=== PATIENT | female | born 1940 ===

== ENCOUNTER 2016-12-05 13:27 | Inpatient (IN) | payer MEDICARE, OTHER ==
[2016-12-05] MEDS ORDERED: Sodium Chloride 0.9% 500 ML IV STA (13:57)
--- NOTE | 2016-12-05 13:57 | ED PDOC ---
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 Pt. had dyspnea then too. Pt. states currently no pain. No numbness, tingles, weakness , headaches, neck pain, dizziness. Pt. with no dyspnea currently. Past Medical History Reviewed: Nursing Documentation, Vital Signs Vital Signs: Last Vital Signs Temp 97.8 F 12/05/16 13:41 Pulse 131 H 12/05/16 13:50 Resp 20 12/05/16 13:41 BP 144/93 H 12/05/16 13:41 Pulse Ox 95 12/05/16 14:03 - Medical History PMH: Diabetes, HTN, Hypercholesterolemia - Surgical History Surgical History: No Surg Hx - Family History Family History: States: Unknown Family Hx - Living Arrangements Living Arrangements: With Family - Social History Current smoker - smoking cessation education provided: No Alcohol: None Drugs: Denies - Allergies Allergies/Adverse Reactions: Allergies Allergy/AdvReac Type Severity Reaction Status Date / Time No Known Allergies Allergy Verified 12/05/16 13:41 Review of Systems ROS Statement: Except As Marked, All Systems Reviewed And Found Negative Cardiovascular: Positive for: Chest Pain Respiratory: Positive for: Shortness of Breath Physical Exam - Reviewed Nursing Documentation Reviewed: Yes Vital Signs Reviewed: Yes - Physical Exam Appears: Positive for: Non-toxic, No Acute Distress Head Exam: Positive for: ATRAUMATIC, NORMAL INSPECTION, NORMOCEPHALIC Skin: Positive for: Normal Color, Warm, DRY Eye Exam: Positive for: EOMI, Normal appearance, PERRL ENT: Positive for: Normal ENT Inspection Neck: Positive for: Normal, Painless ROM Cardiovascular/Chest: Positive for: Irregularly Irregular Respiratory: Positive for: Normal Breath Sounds. Negative for: Decreased Breath Sounds, Accessory Muscle Use Gastrointestinal/Abdominal: Positive for: Normal Exam, Bowel Sounds, Soft. Negative for: Tenderness Back: Positive for: Normal Inspection. Negative for: L CVA Tenderness, R CVA Tenderness Extremity: Positive for: Normal ROM. Negative for: Tenderness, Pedal Edema Neurologic/Psych: Positive for: Alert, Oriented. Negative for: Motor/Sensory Deficits - Laboratory Results Result Diagrams: 12/05/16 13:50 12/05/16 13:50 Interpretation Of Abn Labs: 32 bun - ECG ECG: Positive for: Interpreted By Me, Viewed By Me Interpretation Of Abn EKG: afib rate controlled; 105 while in room O2 Sat by Pulse Oximetry: 95 Pulse Ox Interpretation: Normal - Radiology X-Ray: Read By Radiologist X-Ray Interpretation: No Acute Disease - Progress ED Course And Treament: 1402: Stable. AAOx3. No afib hx. Will get eval and monitor. Rate controlled currently. Took ASA this morning. 1625: No bleeding. No recent injury. Will give lovenox. Spoke with Dr. Sewell. Will admit tele. Pain free. Disposition - Clinical Impression Clinical Impression: Chest pain, Dehydration, Atrial fibrillation - Patient ED Disposition Is Patient to be Admitted: No Counseled Patient/Family Regarding: Studies Performed, Diagnosis - Disposition Disposition Time: 16:28 Condition: FAIR - Pt Status Changed To: Hospital Disposition Of: Inpatient - Admit Certification Admit to Inpatient:: After my assessment, the patient will require hospitalization for at least two midnights. This is because of the severity of symptoms shown, intensity of services needed, and/or the medical risk in this patient being treated as an outpatient. - POA Present On Arrival: None Core Measure Indicators: Chest Pain
[2016-12-05 14:22] LABS: BASO # 0.1 K/uL (0.0-0.2); BASO % 0.7 % (0.0-2.0); EOS # 0.3 K/uL (0.0-0.7); EOS % 4.1 % (0.0-4.0); HEMATOCRIT 34.7 % (34.0-47.0); LYMPH # 2.5 K/uL (1.0-4.3); LYMPH % 34.1 % (20.0-40.0); MEAN CELL VOLUME 90.2 fl (81.0-99.0); MEAN CORPUSCULAR HEMOGLOBIN 30.3 pg (27.0-31.0); MEAN CORPUSCULAR HGB CONC 33.6 g/dL (33.0-37.0); MEAN PLATELET VOLUME 8.6 fl (7.2-11.7); MONO # 0.8 K/uL (0.0-0.8); MONO % 10.4 % (0.0-10.0); NEUT # 3.7 K/uL (1.8-7.0); NEUT % 50.7 % (50.0-75.0); NRBC % 0.2 % (0.0-0.0); RED CELL DISTRIBUTION WIDTH 14.2 % (11.5-14.5); WHITE BLOOD COUNT 7.2 K/uL (4.8-10.8)
[2016-12-05 14:26] LABS: ALB/GLOB RATIO 1.1 (1.0-2.1); ALKALINE PHOSPHATASE 77 U/L (38-126); ALT/SGPT 42 U/L (9-52); AST/SGOT 51 U/L (14-36); BILIRUBIN,TOTAL 0.8 mg/dl (0.2-1.3); BLOOD UREA NITROGEN 32 mg/dl (7-17); CALCIUM 8.8 mg/dL (8.4-10.2); CARBON DIOXIDE 28 mmol/L (22-30); CHLORIDE 100 mmol/L (98-107); GFR AFRICAN-AMERICAN > 60; GLUCOSE,RANDOM 112 mg/dL (65-105); PARTIAL THROMBOPLASTIN TIME 23.3 SECONDS (23.3-32.5); SODIUM 137 mmol/l (132-148); TOTAL PROTEIN 8.2 G/DL (6.3-8.2)
[2016-12-05 14:39] LABS: POTASSIUM 4.4 MMOL/L (3.6-5.0)
--- NOTE | 2016-12-05 15:03 | RAD ---
HISTORY: pain chest COMPARISON: No prior. FINDINGS: LUNGS: Limited examination. Oblique and apical lordotic. No infiltrate. PLEURA: No significant pleural effusion identified, no pneumothorax apparent. CARDIOVASCULAR: Normal. OSSEOUS STRUCTURES: No significant abnormalities. VISUALIZED UPPER ABDOMEN: Normal. OTHER FINDINGS: None. IMPRESSION: No active disease.
[2016-12-05] MEDS ORDERED: Enoxaparin 100 mg Syringe SC STA (16:27)
--- NOTE | 2016-12-05 17:12 | CP.PCM.HP ---
History of Present Illness - History of Present Illness History of Present Illness: 76 yo female with history of HTN, HLD and DM2 brought in by family because of left sided chest pain radiating to the back, left shoulder and left hand since 12 noon today accompanied with mild SOB. Pain was continuous and graded at about 9/10 subsiding to about 6/10 when seen in the ER. Denied nausea, vomiting or dizziness. Present on Admission - Present on Admission Any Indicators Present on Admission: No History of DVT/PE: No History of Uncontrolled Diabetes: No Urinary Catheter: No Decubitus Ulcer Present: No Review of Systems - Review of Systems All systems: reviewed and no additional remarkable complaints except (aside from those mentioned above, 12 point system review were negative by me) Past Patient History - Infectious Disease Hx of Infectious Diseases: None - Tetanus Immunizations Tetanus Immunization: Unknown - Past Medical History & Family History Past Medical History?: Yes - Past Social History Smoking Status: Never Smoked Chewing Tobacco Use: No Cigar Use: No Alcohol: None Drugs: Denies Home Situation {Lives}: With Family - CARDIAC Hx Atrial Fibrillation: No Hx Hypercholesterolemia: Yes Hx Hypertension: Yes - PULMONARY Hx Respiratory Disorders: No - NEUROLOGICAL Hx Neurological Disorder: No - HEENT Hx HEENT Problems: No - RENAL Hx Chronic Kidney Disease: No - ENDOCRINE/METABOLIC Hx Diabetes Mellitus Type 2: Yes - HEMATOLOGICAL/ONCOLOGICAL Hx Blood Disorders: No - INTEGUMENTARY Hx Dermatological Problems: No - MUSCULOSKELETAL/RHEUMATOLOGICAL Hx Musculoskeletal Disorders: No - GASTROINTESTINAL Hx Gastrointestinal Disorders: No - GENITOURINARY/GYNECOLOGICAL Hx Genitourinary Disorders: No - PSYCHIATRIC Hx Psychophysiologic Disorder: No Hx Substance Use: No - SURGICAL HISTORY Hx Cholecystectomy: Yes Other/Comment: bilateral venous stripping?? - ANESTHESIA Hx Anesthesia: Yes Hx Anesthesia Reactions: No Meds Allergies/Adverse Reactions: Allergies Allergy/AdvReac Type Severity Reaction Status Date / Time No Known Allergies Allergy Verified 12/05/16 13:41 Physical Exam - Constitutional Appears: No Acute Distress, Other (obese) - Head Exam Head Exam: ATRAUMATIC - Eye Exam Eye Exam: Normal appearance - ENT Exam ENT Exam: Mucous Membranes Moist - Neck Exam Neck exam: Negative for: Meningismus - Respiratory Exam Respiratory Exam: absent: Chest Wall Tenderness, Rhonchi, Wheezes, Respiratory Distress - Cardiovascular Exam Cardiovascular Exam: Tachycardia, Irregular Rhythm - GI/Abdominal Exam GI & Abdominal Exam: Soft. absent: Tenderness - Rectal Exam Rectal Exam: Deferred - Extremities Exam Extremities exam: Negative for: calf tenderness, pedal edema - Neurological Exam Neurological exam: Alert, Oriented x3 - Psychiatric Exam Psychiatric exam: Normal Affect - Skin Skin Exam: Dry, Intact Results - Vital Signs Recent Vital Signs: Last Vital Signs Temp 97.8 F 12/05/16 13:41 Pulse 131 H 12/05/16 13:50 Resp 20 12/05/16 13:41 BP 144/93 H 12/05/16 13:41 Pulse Ox 95 12/05/16 16:28 - Labs Result Diagrams: 12/05/16 13:50 12/05/16 13:50 Labs: Laboratory Results - last 24 hr 12/05/16 13:50 WBC 7.2 RBC 3.85 Hgb 11.7 L Hct 34.7 MCV 90.2 MCH 30.3 MCHC 33.6 RDW 14.2 Plt Count 193 MPV 8.6 Neut % (Auto) 50.7 Lymph % (Auto) 34.1 [place] % (Auto) 10.4 H Eos % (Auto) 4.1 H Baso % (Auto) 0.7 Neut # 3.7 Lymph # 2.5 [place] # 0.8 Eos # 0.3 Baso # 0.1 PT 10.3 INR 0.99 APTT 23.3 Sodium 137 Potassium 4.4 Chloride 100 Carbon Dioxide 28 Anion Gap 13 BUN 32 H Creatinine 0.9 Est GFR ( Amer) > 60 Est GFR (Non-Af Amer) > 60 Random Glucose 112 H Calcium 8.8 Total Bilirubin 0.8 AST 51 H ALT 42 Alkaline Phosphatase 77 Troponin I < 0.0120 NT-Pro-B Natriuret Pep 426 Total Protein 8.2 Albumin 4.3 Globulin 3.9 Albumin/Globulin Ratio 1.1 - EKG Data EKG Interpreted by: Myself Rate: Tachycardia - EKG Data Interpretation: Acute Arrhythmia (atrial fibrillation) Assessment & Plan (1) Chest pain Status: Acute Comment: admit to telemetry. serial Troponin and EKG. ECHO. cardiology consult with Dr Jenkins. NTG SL prn for chest pain. Morphine 2mg IV q 4hrs prn for chest pain. Lipitor 10mg PO daily. Coreg 12.5mg PO q 12hrs. O2 by NC 2LPM prn for SOB (2) Afib Status: Acute Comment: new onset AFib with RVR. received 5mg of IV Cardizem. Coreg 12.5mg PO q 12hrs. Lovenox 90mg SC q 12hrs. ECHO (3) DM2 (diabetes mellitus, type 2) Status: Acute Comment: accuchek ACHS with low Lispro coverage. HgA1C, BMP in am (4) HTN (hypertension) Status: Acute Comment: BP stable. Coreg 12.5mg PO q 12hrs. monitor BP (5) DVT prophylaxis Status: Acute Comment: on therapeutic dose of Lovenox 90mg SC q 12hrs
[2016-12-05] MEDS ORDERED: Pantoprazole 40 mg EC Tab PO ONE (17:16)
[2016-12-05] MEDS: Pantoprazole 40 mg EC Tab PO SCH (17:28)
[2016-12-05] MEDS: Enoxaparin 100 mg Syringe SC SCH (21:21)
[2016-12-05] MEDS: Insulin Lispro (humaLOG) 100 Units/ml Inj SC SCH (21:58)
[2016-12-06] MEDS ORDERED: Labetalol 5mg/ml (4ml) IVP STA (00:04)
[2016-12-06] MEDS ORDERED: Nitroglycerin 2% 1GM UD TOP STA (00:39)
[2016-12-06 06:36] LABS: BLOOD UREA NITROGEN 19 mg/dl (7-17); CALCIUM 8.3 mg/dL (8.4-10.2); CARBON DIOXIDE 28 mmol/L (22-30); CHLORIDE 102 mmol/L (98-107); CHOLESTEROL 123 mg/dL (0-199); GFR AFRICAN-AMERICAN > 60; GLUCOSE,RANDOM 104 mg/dL (65-105); POTASSIUM 3.7 MMOL/L (3.6-5.0); SODIUM 137 mmol/l (132-148)
[2016-12-06] MEDS: Insulin Lispro (humaLOG) 100 Units/ml Inj SC SCH ×4 (06:41→22:58)
[2016-12-06 06:47] LABS: BASO % 0.4 % (0.0-2.0); EOS # 0.3 K/uL (0.0-0.7); EOS % 4.8 % (0.0-4.0); HEMATOCRIT 32.2 % (34.0-47.0); LYMPH # 2.2 K/uL (1.0-4.3); LYMPH % 35.1 % (20.0-40.0); MEAN CELL VOLUME 90.7 fl (81.0-99.0); MEAN CORPUSCULAR HEMOGLOBIN 30.9 pg (27.0-31.0); MEAN CORPUSCULAR HGB CONC 34.1 g/dL (33.0-37.0); MEAN PLATELET VOLUME 8.1 fl (7.2-11.7); MONO # 0.6 K/uL (0.0-0.8); MONO % 9.3 % (0.0-10.0); NEUT # 3.1 K/uL (1.8-7.0); NEUT % 50.4 % (50.0-75.0); NRBC % 0.1 % (0.0-0.0); RED CELL DISTRIBUTION WIDTH 14.2 % (11.5-14.5); WHITE BLOOD COUNT 6.2 K/uL (4.8-10.8)
--- NOTE | 2016-12-06 08:12 | CP.PCM.CON ---
History of Present Illness - History of Present Illness History of Present Illness: 76 yo female with history of HTN, HLD and DM2 brought in by family because of left sided chest pain radiating to the back, left shoulder and left hand since 12 noon today accompanied with mild SOB. Denied nausea, vomiting or dizziness. Pt claims she had bilateral shoulder pain alleviated with movement of her arms Denies pains at this time on admission noted to be in Atrial fib which is new for this patient Troponin : + x 2 EKG: atrial fibrillation Past Patient History - Infectious Disease Hx of Infectious Diseases: None - Tetanus Immunizations Tetanus Immunization: Unknown - Past Medical History & Family History Past Medical History?: Yes - Past Social History Smoking Status: Never Smoked - CARDIAC Hx Atrial Fibrillation: No Hx Hypercholesterolemia: Yes Hx Hypertension: Yes - PULMONARY Hx Respiratory Disorders: No - NEUROLOGICAL Hx Neurological Disorder: No - HEENT Hx HEENT Problems: No - RENAL Hx Chronic Kidney Disease: No - ENDOCRINE/METABOLIC Hx Diabetes Mellitus Type 2: Yes - HEMATOLOGICAL/ONCOLOGICAL Hx Blood Disorders: No - INTEGUMENTARY Hx Dermatological Problems: No - MUSCULOSKELETAL/RHEUMATOLOGICAL Hx Falls: No - GASTROINTESTINAL Hx Gastrointestinal Disorders: No - GENITOURINARY/GYNECOLOGICAL Hx Genitourinary Disorders: No - PSYCHIATRIC Hx Substance Use: No - SURGICAL HISTORY Hx Cholecystectomy: Yes Other/Comment: bilateral venous stripping?? - ANESTHESIA Hx Anesthesia: Yes Hx Anesthesia Reactions: No Meds Allergies/Adverse Reactions: Allergies Allergy/AdvReac Type Severity Reaction Status Date / Time No Known Allergies Allergy Verified 12/05/16 13:41 - Medications Medications: Current Medications Amlodipine Besylate (Norvasc) 5 mg PO DAILY [facility] Aspirin (Aspirin Chewable) 81 mg PO DAILY [facility] Aspirin (Aspirin) 325 mg PO DAILY [facility] Atorvastatin Calcium (Lipitor) 20 mg PO DAILY [facility] Carvedilol (Coreg) 25 mg PO BID [facility] Clopidogrel Bisulfate (Plavix) 75 mg PO DAILY [facility] Enoxaparin Sodium (Lovenox) 90 mg SC Q12 [facility] PRN Reason: Protocol Last Admin: 12/05/16 21:21 Dose: Not Given Insulin Human Lispro (Humalog) 0 units SC ACHS [facility] PRN Reason: Protocol Last Admin: 12/06/16 06:41 Dose: Not Given Morphine Sulfate (Morphine) 2 mg IVP Q6 PRN PRN Reason: chest pain Nitroglycerin (Nitrostat Sl Tab) 0.4 mg SL Q5M PRN PRN Reason: chest pain Pantoprazole Sodium (Protonix Ec Tab) 40 mg PO DAILY [facility] Last Admin: 12/05/16 17:28 Dose: 40 mg Physical Exam - Respiratory Exam Respiratory Exam: NORMAL BREATHING PATTERN - Cardiovascular Exam Cardiovascular Exam: Irregular Rhythm Results - Vital Signs Recent Vital Signs: Last Vital Signs Temp 98 F 12/06/16 05:18 Pulse 68 12/06/16 05:18 Resp 18 12/06/16 05:18 BP 162/71 H 12/06/16 05:18 Pulse Ox 99 12/06/16 05:18 - Labs Result Diagrams: 12/06/16 06:02 12/06/16 06:02 Labs: Laboratory Results - last 24 hr 12/05/16 12/05/16 12/06/16 21:02 22:18 05:33 WBC RBC Hgb Hct MCV MCH MCHC RDW Plt Count MPV Neut % (Auto) Lymph % (Auto) [place] % (Auto) Eos % (Auto) Baso % (Auto) Neut # Lymph # [place] # Eos # Baso # Sodium Potassium Chloride Carbon Dioxide Anion Gap BUN Creatinine Est GFR ( Amer) Est GFR (Non-Af Amer) POC Glucose (mg/dL) 112 H 104 Random Glucose Calcium Troponin I 1.0600 H* Triglycerides Cholesterol LDL Cholesterol Direct HDL Cholesterol 12/06/16 06:02 WBC 6.2 RBC 3.55 L Hgb 11.0 L Hct 32.2 L MCV 90.7 MCH 30.9 MCHC 34.1 RDW 14.2 Plt Count 153 MPV 8.1 Neut % (Auto) 50.4 Lymph % (Auto) 35.1 [place] % (Auto) 9.3 Eos % (Auto) 4.8 H Baso % (Auto) 0.4 Neut # 3.1 Lymph # 2.2 [place] # 0.6 Eos # 0.3 Baso # 0.0 Sodium 137 Potassium 3.7 Chloride 102 Carbon Dioxide 28 Anion Gap 10 BUN 19 H Creatinine 0.8 Est GFR ( Amer) > 60 Est GFR (Non-Af Amer) > 60 POC Glucose (mg/dL) Random Glucose 104 Calcium 8.3 L Troponin I 2.2800 H* Triglycerides 180 H Cholesterol 123 LDL Cholesterol Direct 53 HDL Cholesterol 37 Assessment & Plan (1) Afib Assessment and Plan: Controlled rate w/ Coreg continue present Tx Status: Acute (2) Chest pain Assessment and Plan: Positive troponins may represent 2* to AF will continue to follow Status: Acute (3) DM2 (diabetes mellitus, type 2) Status: Acute (4) HTN (hypertension) Status: Acute
--- NOTE | 2016-12-06 08:53 | CP.PCM.PN ---
Subjective - Date & Time of Evaluation Date of Evaluation: 12/06/16 Time of Evaluation: 08:00 - Subjective Subjective: Feels better Denies CP at present no palpitation no SOB no abd pain No fever no TY, no dizziness no abd pain A Fib on Tele monitor Objective - Vital Signs/Intake and Output Vital Signs (last 24 hours): Temp Pulse Resp BP Pulse Ox 98 F 68 18 162/71 H 99 12/06/16 05:18 12/06/16 05:18 12/06/16 05:18 12/06/16 05:18 12/06/16 05:18 - Medications Medications: Current Medications Amlodipine Besylate (Norvasc) 5 mg PO DAILY [facility] Aspirin (Aspirin Chewable) 81 mg PO DAILY [facility] Aspirin (Aspirin) 325 mg PO DAILY [facility] Atorvastatin Calcium (Lipitor) 20 mg PO DAILY [facility] Carvedilol (Coreg) 25 mg PO BID [facility] Clopidogrel Bisulfate (Plavix) 75 mg PO DAILY [facility] Enoxaparin Sodium (Lovenox) 90 mg SC Q12 [facility] PRN Reason: Protocol Last Admin: 12/05/16 21:21 Dose: Not Given Insulin Human Lispro (Humalog) 0 units SC ACHS [facility] PRN Reason: Protocol Last Admin: 12/06/16 06:41 Dose: Not Given Morphine Sulfate (Morphine) 2 mg IVP Q6 PRN PRN Reason: chest pain Nitroglycerin (Nitrostat Sl Tab) 0.4 mg SL Q5M PRN PRN Reason: chest pain Pantoprazole Sodium (Protonix Ec Tab) 40 mg PO DAILY [facility] Last Admin: 12/05/16 17:28 Dose: 40 mg - Labs Labs: 12/06/16 06:02 12/06/16 06:02 PT 10.3 SECONDS (9.6-11.2) 12/05/16 13:50 INR 0.99 (0.92-1.08) 12/05/16 13:50 APTT 23.3 SECONDS (23.3-32.5) 12/05/16 13:50 - Constitutional Appears: No Acute Distress - Head Exam Head Exam: NORMAL INSPECTION, NORMOCEPHALIC - Eye Exam Eye Exam: EOMI, Normal appearance Pupil Exam: NORMAL ACCOMODATION - ENT Exam ENT Exam: Mucous Membranes Moist, Normal External Ear Exam - Neck Exam Neck Exam: Full ROM. absent: Meningismus - Respiratory Exam Respiratory Exam: NORMAL BREATHING PATTERN. absent: Respiratory Distress - Cardiovascular Exam Cardiovascular Exam: Tachycardia, Irregular Rhythm, +S1, +S2 - GI/Abdominal Exam GI & Abdominal Exam: Soft, Normal Bowel Sounds. absent: Tenderness - Extremities Exam Extremities Exam: Full ROM. absent: Calf Tenderness, Pedal Edema - Back Exam Back Exam: Full ROM, NORMAL INSPECTION. absent: CVA tenderness (L), CVA tenderness (R), paraspinal tenderness - Neurological Exam Neurological Exam: Alert, Awake, CN II-XII Intact, Oriented x3 Neuro motor strength exam: Left Upper Extremity: 5, Right Upper Extremity: 5, Left Lower Extremity: 5, Right Lower Extremity: 5 - Psychiatric Exam Psychiatric exam: Normal Affect, Normal Mood - Skin Skin Exam: Dry, Normal Color, Warm Assessment and Plan (1) Chest pain Status: Acute (2) Atrial fibrillation with RVR Status: Acute (3) DM2 (diabetes mellitus, type 2) Status: Chronic (4) HTN (hypertension) Status: Chronic (5) DVT prophylaxis Status: Acute (6) Elevated troponin Status: Acute - Assessment and Plan (Free Text) Assessment: 76 y/o lady with hx of HTN, DM, came in bec of chest pain ,palpitations and SOB , found to be in A Fib with RVR. (1) Chest pain prob sec to rapid HR Status: Acute Pt admitted to Tele started on ASA, Plavix, therapeutic dose of Lovenox, Coreg and statin add Diovan Troponin elevated to 2.2 Cardio consulted: Dr Jenkins ECHOcardiogram (2) Troponin Elevation prob related to A Fib - Cardio consulted - will cont to monitor (3) New Onset Afib with RVR Status: Acute received Cardizem IV in ED cont Coreg start Cardizem PO cont therapeutic Lovenox (4) DM2 (diabetes mellitus, type 2) Status: Acute accuchek ACHS with low Lispro coverage. HgA1C (5) HTN (hypertension) uncontrolled Status: Acute Coreg 25mg PO q 12hrs. add Diovan and Cardizem d/c Norvasc monitor BP (6) DVT prophylaxis Status: Acute on therapeutic dose of Lovenox 90mg SC q 12hrs
[2016-12-06] MEDS: Enoxaparin 100 mg Syringe SC SCH ×2 (11:18→21:12)
[2016-12-06] MEDS: Pantoprazole 40 mg EC Tab PO SCH (11:21)
[2016-12-07] MEDS: Insulin Lispro (humaLOG) 100 Units/ml Inj SC SCH ×4 (06:43→22:00)
--- NOTE | 2016-12-07 07:01 | CARD ---
APPROVED REPORT EXAM: Two-dimensional and M-mode echocardiogram with Doppler and color Doppler. Other Information Quality : AverageRhythm : Atrial Fibrillation Technically limited study due to Poor Echo Window INDICATION Atrial Fibrillation 2D DIMENSIONS IVSd1.52 (0.7-1.1cm)LVDd4.28 (3.9-5.9cm) LVOT Diameter1.95 (1.8-2.4cm)PWd1.12 (0.7-1.1cm) IVSs1.35 (0.8-1.2cm)LVDs3.18 (2.5-4.0cm) FS (%) 25.8 %PWs1.27 (0.8-1.2cm) M-Mode DIMENSIONS Left Atrium (MM)4.13 (2.5-4.0cm)IVSd1.25 (0.7-1.1cm) Aortic Root3.00 (2.2-3.7cm)LVDd3.22 (4.0-5.6cm) Aortic Cusp Exc.1.88 (1.5-2.0cm)PWd0.97 (0.7-1.1cm) IVSs1.31 cmFS (%) 33 % LVDs2.16 (2.0-3.8cm)PWs1.47 cm Mitral Valve E/A ratio0.0 TDI E/Lateral E'0.0E/Medial E'0.0 Tricuspid Valve TR Peak [id number] Peak Gr.22mmHg [id number] LEFT VENTRICLE The left ventricle is normal size. There is normal left ventricular wall thickness. The left ventricular function is normal. The left ventricular ejection fraction is 55% There is normal LV segmental wall motion. The left ventricular diastolic function not determined due to afib No left ventricle thrombus noted on this study. There is no ventricular septal defect visualized. There is no left ventricular aneurysm. There is no mass noted in the left ventricle. RIGHT VENTRICLE The right ventricle is normal size. There is normal right ventricular wall thickness. The right ventricular systolic function is normal. ATRIA The left atrium is borderline dilated. The right atrium size is normal. The interatrial septum is intact with no evidence for an atrial septal defect. AORTIC VALVE The aortic valve is normal in structure and function. No aortic regurgitation is present. There is no aortic valvular stenosis. There is no aortic valvular vegetation. MITRAL VALVE The mitral valve is normal in structure and function. There is no evidence of mitral valve prolapse. There is no mitral valve stenosis. Mitral regurgitation is mild. TRICUSPID VALVE The tricuspid valve is normal in structure and function. There is no tricuspid valve regurgitation noted. There is no tricuspid valve prolapse or vegetation. There is no tricuspid valve stenosis. PULMONIC VALVE The pulmonary valve is normal in structure and function. There is no pulmonic valvular regurgitation. There is no pulmonic valvular stenosis. There is no pulmonic valvular stenosis. GREAT VESSELS The aortic root is normal in size. The ascending aorta is normal in size. The IVC is normal in size and collapses >50% with inspiration. PERICARDIAL EFFUSION The pericardium appears normal. There is no pleural effusion. <Conclusion> Normal LV Systolic Function Mild Mitral Regurgitation
[2016-12-07] MEDS: Pantoprazole 40 mg EC Tab PO SCH (09:01)
--- NOTE | 2016-12-07 09:01 | CP.PCM.PN ---
Subjective - Date & Time of Evaluation Date of Evaluation: 12/07/16 Time of Evaluation: 09:00 - Subjective Subjective: No fever no CP no SOB no palpitation no abd pain has sl pedal edema HR variable on Tele monitor - A fib - 40's to 130s Objective - Vital Signs/Intake and Output Vital Signs (last 24 hours): Temp Pulse Resp BP Pulse Ox 98.2 F 60 18 165/72 H 99 12/07/16 04:53 12/07/16 04:53 12/07/16 04:53 12/07/16 04:53 12/07/16 04:53 - Medications Medications: Current Medications Aspirin (Aspirin Chewable) 81 mg PO DAILY [facility] Last Admin: 12/06/16 11:14 Dose: 81 mg Atorvastatin Calcium (Lipitor) 20 mg PO DAILY [facility] Last Admin: 12/06/16 11:18 Dose: 20 mg Carvedilol (Coreg) 12.5 mg PO Q12 [facility] Clopidogrel Bisulfate (Plavix) 75 mg PO DAILY [facility] Last Admin: 12/06/16 11:19 Dose: 75 mg Diltiazem HCl (Cardizem) 30 mg PO TID [facility] Last Admin: 12/06/16 17:16 Dose: 30 mg Enoxaparin Sodium (Lovenox) 90 mg SC Q12 [facility] PRN Reason: Protocol Last Admin: 12/06/16 21:12 Dose: 90 mg Insulin Human Lispro (Humalog) 0 units SC ACHS [facility] PRN Reason: Protocol Last Admin: 12/07/16 06:43 Dose: Not Given Isosorbide Mononitrate (Imdur) 30 mg PO DAILY [facility] Morphine Sulfate (Morphine) 2 mg IVP Q6 PRN PRN Reason: chest pain Nitroglycerin (Nitrostat Sl Tab) 0.4 mg SL Q5M PRN PRN Reason: chest pain Pantoprazole Sodium (Protonix Ec Tab) 40 mg PO DAILY [facility] Last Admin: 12/06/16 11:21 Dose: 40 mg Valsartan (Diovan) 160 mg PO DAILY [facility] - Labs Labs: 12/06/16 06:02 12/06/16 06:02 PT 10.3 SECONDS (9.6-11.2) 12/05/16 13:50 INR 0.99 (0.92-1.08) 12/05/16 13:50 APTT 23.3 SECONDS (23.3-32.5) 12/05/16 13:50 - Constitutional Appears: No Acute Distress - Head Exam Head Exam: NORMAL INSPECTION, NORMOCEPHALIC - Eye Exam Eye Exam: EOMI, Normal appearance Pupil Exam: NORMAL ACCOMODATION - ENT Exam ENT Exam: Mucous Membranes Moist, Normal External Ear Exam - Neck Exam Neck Exam: Full ROM. absent: Meningismus - Respiratory Exam Respiratory Exam: NORMAL BREATHING PATTERN. absent: Respiratory Distress - Cardiovascular Exam Cardiovascular Exam: Tachycardia, Irregular Rhythm, +S1, +S2 - GI/Abdominal Exam GI & Abdominal Exam: Soft, Normal Bowel Sounds. absent: Tenderness - Extremities Exam Extremities Exam: Full ROM. absent: Calf Tenderness trace Pedal Edema - Back Exam Back Exam: Full ROM, NORMAL INSPECTION. absent: CVA tenderness (L), CVA tenderness (R), paraspinal tenderness - Neurological Exam Neurological Exam: Alert, Awake, CN II-XII Intact, Oriented x3 Neuro motor strength exam: Left Upper Extremity: 5, Right Upper Extremity: 5, Left Lower Extremity: 5, Right Lower Extremity: 5 - Psychiatric Exam Psychiatric exam: Normal Affect, Normal Mood - Skin Skin Exam: Dry, Normal Color, Warm Assessment and Plan (1) Chest pain Status: Acute (2) Atrial fibrillation with RVR Status: Acute (3) DM2 (diabetes mellitus, type 2) Status: Chronic (4) HTN (hypertension) Status: Chronic (5) DVT prophylaxis Status: Acute (6) Elevated troponin Status: Acute - Assessment and Plan (Free Text) Assessment: 76 y/o lady with hx of HTN, DM, came in bec of chest pain ,palpitations and SOB , found to be in A Fib with RVR. Troponin elevated up to 2.2. (1) Chest pain - need further cardiac work up Status: Acute CP prob sec to NSTEMI and also from rapid A fib Pt admitted to Tele started on ASA, Plavix, therapeutic dose of Lovenox, Coreg, Diovan , Imdur and statin Troponin elevated = 2.2 Cardio consulted: Dr Jenkins ECHOcardiogram: normal LF function and wall motion (2) Troponin Elevation prob NSTEMI an also related to A Fib -Interventional Cardio consult for possible need for cardiac cath- Dr Galindo consulted - will cont to monitor (3) New Onset Afib with RVR Status: Acute received Cardizem IV in ED cont Coreg started Cardizem PO cont therapeutic Lovenox (4) DM2 (diabetes mellitus, type 2) Status: Acute accuchek ACHS with low Lispro coverage. HgA1C hold Metformin as pt may need cardiac cath (5) HTN (hypertension) uncontrolled Status: Acute Coreg add Diovan , Imdur and Cardizem d/c Norvasc monitor BP (6) DVT prophylaxis Status: Acute on therapeutic dose of Lovenox 90mg SC q 12hrs
[2016-12-07] MEDS: Enoxaparin 100 mg Syringe SC SCH (09:02)
--- NOTE | 2016-12-07 10:55 | CP.PCM.PN ---
Subjective - Date & Time of Evaluation Date of Evaluation: 12/07/16 Time of Evaluation: 10:53 - Subjective Subjective: Pt remains in Atrial Fib @ 68 BPM Denies chest pain / SOB / HOLDEN Resting comfortably in bed Objective - Vital Signs/Intake and Output Vital Signs (last 24 hours): Temp Pulse Resp BP Pulse Ox 98.2 F 70 18 168/74 H 97 12/07/16 09:47 12/07/16 10:21 12/07/16 09:47 12/07/16 10:21 12/07/16 09:47 - Medications Medications: Current Medications Aspirin (Aspirin Chewable) 81 mg PO DAILY [facility] Last Admin: 12/07/16 09:01 Dose: 81 mg Atorvastatin Calcium (Lipitor) 20 mg PO DAILY [facility] Last Admin: 12/07/16 09:01 Dose: 20 mg Carvedilol (Coreg) 12.5 mg PO Q12 [facility] Last Admin: 12/07/16 10:21 Dose: 12.5 mg Clopidogrel Bisulfate (Plavix) 75 mg PO DAILY [facility] Last Admin: 12/07/16 09:01 Dose: 75 mg Diltiazem HCl (Cardizem) 30 mg PO TID [facility] Last Admin: 12/07/16 09:37 Dose: Not Given Diltiazem HCl (Cardizem) 5 mg IVP STAT STA Stop: 12/07/16 10:49 Enoxaparin Sodium (Lovenox) 90 mg SC Q12 [facility] PRN Reason: Protocol Last Admin: 12/07/16 09:02 Dose: 90 mg Insulin Human Lispro (Humalog) 0 units SC ACHS [facility] PRN Reason: Protocol Last Admin: 12/07/16 06:43 Dose: Not Given Isosorbide Mononitrate (Imdur) 30 mg PO DAILY [facility] Last Admin: 12/07/16 10:21 Dose: 30 mg Morphine Sulfate (Morphine) 2 mg IVP Q6 PRN PRN Reason: chest pain Nitroglycerin (Nitrostat Sl Tab) 0.4 mg SL Q5M PRN PRN Reason: chest pain Pantoprazole Sodium (Protonix Ec Tab) 40 mg PO DAILY [facility] Last Admin: 12/07/16 09:01 Dose: 40 mg Valsartan (Diovan) 160 mg PO DAILY [facility] Last Admin: 12/07/16 10:22 Dose: 160 mg - Labs Labs: 12/06/16 06:02 12/06/16 06:02 PT 10.3 SECONDS (9.6-11.2) 12/05/16 13:50 INR 0.99 (0.92-1.08) 12/05/16 13:50 APTT 23.3 SECONDS (23.3-32.5) 12/05/16 13:50 Assessment and Plan (1) Afib Assessment & Plan: Continue present Tx Status: Acute (2) Chest pain Status: Acute (3) DM2 (diabetes mellitus, type 2) Status: Chronic (4) HTN (hypertension) Status: Chronic
[2016-12-07 11:06] LABS: BLOOD UREA NITROGEN 23 mg/dl (7-17); CALCIUM 9.3 mg/dL (8.4-10.2); CARBON DIOXIDE 25 mmol/L (22-30); CHLORIDE 103 mmol/L (98-107); GFR AFRICAN-AMERICAN > 60; GLUCOSE,RANDOM 175 mg/dL (65-105); POTASSIUM 3.6 MMOL/L (3.6-5.0); SODIUM 140 mmol/l (132-148)
[2016-12-08] MEDS: Insulin Lispro (humaLOG) 100 Units/ml Inj SC SCH ×4 (06:43→22:14)
[2016-12-08] MEDS: Pantoprazole 40 mg EC Tab PO SCH (09:07)
--- NOTE | 2016-12-08 09:39 | CP.PCM.PN ---
Subjective - Date & Time of Evaluation Date of Evaluation: 12/08/16 Time of Evaluation: 09:00 - Subjective Subjective: denies CP HR very erratic , A fib on monitor no SOB no palpitations no abd pain no fever I had discussed case with pt's PMD- Dr Oropeza and he rec Int Cardio consult Discussed plan for cardiac cath with pt and daughter and they agree with the plan Objective - Vital Signs/Intake and Output Vital Signs (last 24 hours): Temp Pulse Resp BP Pulse Ox 98.2 F 64 20 167/79 H 97 12/08/16 08:00 12/08/16 09:07 12/08/16 08:00 12/08/16 09:07 12/08/16 08:00 - Medications Medications: Current Medications Aspirin (Aspirin Chewable) 81 mg PO DAILY [facility] Last Admin: 12/08/16 09:08 Dose: 81 mg Atorvastatin Calcium (Lipitor) 20 mg PO DAILY [facility] Last Admin: 12/08/16 09:06 Dose: 20 mg Carvedilol (Coreg) 12.5 mg PO Q12 [facility] Last Admin: 12/08/16 09:07 Dose: 12.5 mg Clopidogrel Bisulfate (Plavix) 75 mg PO DAILY [facility] Last Admin: 12/08/16 09:08 Dose: 75 mg Insulin Human Lispro (Humalog) 0 units SC ACHS [facility] PRN Reason: Protocol Last Admin: 12/08/16 06:43 Dose: Not Given Isosorbide Mononitrate (Imdur) 60 mg PO DAILY [facility] Morphine Sulfate (Morphine) 2 mg IVP Q6 PRN PRN Reason: chest pain Nitroglycerin (Nitrostat Sl Tab) 0.4 mg SL Q5M PRN PRN Reason: chest pain Pantoprazole Sodium (Protonix Ec Tab) 40 mg PO DAILY [facility] Last Admin: 12/08/16 09:07 Dose: 40 mg Valsartan (Diovan) 320 mg PO DAILY [facility] Valsartan (Diovan) 160 mg PO STAT STA Stop: 12/08/16 09:38 - Labs Labs: 12/06/16 06:02 12/07/16 08:30 PT 10.3 SECONDS (9.6-11.2) 12/05/16 13:50 INR 0.99 (0.92-1.08) 12/05/16 13:50 APTT 23.3 SECONDS (23.3-32.5) 12/05/16 13:50 - Constitutional Appears: No Acute Distress - Head Exam Head Exam: NORMAL INSPECTION, NORMOCEPHALIC - Eye Exam Eye Exam: EOMI, Normal appearance Pupil Exam: NORMAL ACCOMODATION - ENT Exam ENT Exam: Mucous Membranes Moist, Normal External Ear Exam - Neck Exam Neck Exam: Full ROM. absent: Meningismus - Respiratory Exam Respiratory Exam: NORMAL BREATHING PATTERN. absent: Respiratory Distress - Cardiovascular Exam Cardiovascular Exam: Tachycardia, Irregular Rhythm, +S1, +S2 - GI/Abdominal Exam GI & Abdominal Exam: Soft, Normal Bowel Sounds. absent: Tenderness - Extremities Exam Extremities Exam: Full ROM. absent: Calf Tenderness trace Pedal Edema - Back Exam Back Exam: Full ROM, NORMAL INSPECTION. absent: CVA tenderness (L), CVA tenderness (R), paraspinal tenderness - Neurological Exam Neurological Exam: Alert, Awake, CN II-XII Intact, Oriented x3 Neuro motor strength exam: Left Upper Extremity: 5, Right Upper Extremity: 5, Left Lower Extremity: 5, Right Lower Extremity: 5 - Psychiatric Exam Psychiatric exam: Normal Affect, Normal Mood - Skin Skin Exam: Dry, Normal Color, Warm Assessment and Plan (1) Chest pain Status: Acute (2) Atrial fibrillation with RVR Status: Acute (3) DM2 (diabetes mellitus, type 2) Status: Chronic (4) HTN (hypertension) Status: Chronic (5) DVT prophylaxis Status: Acute (6) Elevated troponin Status: Acute - Assessment and Plan (Free Text) Assessment: 76 y/o lady with hx of HTN, DM, came in bec of chest pain ,palpitations and SOB , found to be in A Fib with RVR. Troponin elevated up to 2.2. (1) Chest pain prob NSTEMI - need further cardiac work up Status: Acute CP prob sec to NSTEMI and also from rapid A fib Pt admitted to Tele started on ASA, Plavix, therapeutic dose of Lovenox, Coreg, Diovan , Imdur and statin Troponin elevated = up to 2.2 Cardio consulted: Dr Jenkins ECHOcardiogram: normal LV function and wall motion Discussed with pt's PCP- Dr Oropeza- rec Cardiac cath for further eval given high risk factors- Dr Galindo consulted (2) Troponin Elevation prob NSTEMI -Interventional Cardio consult for possible need for cardiac cath- Dr Galindo consulted - will cont to monitor (3) New Onset Afib with RVR Status: Acute HR difficult to control with episodes of cale and tachy received Cardizem IV in ED cont Coreg - decreased dose to 12.5 d/c Cardizem PO bec of cale cont therapeutic Lovenox (4) DM2 (diabetes mellitus, type 2) Status: Acute accuchek ACHS with low Lispro coverage. [id number] hold Metformin as pt may need cardiac cath (5) HTN (hypertension) uncontrolled Status: Acute cont Coreg Increase Diovan dose to 320 mg daily , Imdur 60mg daily add Norvasc monitor BP (6) DVT prophylaxis Status: Acute on therapeutic dose of Lovenox 90mg SC q 12hrs (7) Euthyroid Sick Syndrome TSH low however T4 normal and T3 low rpt TSH as outpt
[2016-12-08 09:42] LABS: T4 9.44 ug/dl (5.5-11.0)
--- NOTE | 2016-12-08 10:14 | CARD ---
APPROVED REPORT EKG Measurement Heart [id number] <Conclusion> Atrial fibrillation with rapid ventricular response Cannot rule out Inferior infarct, age undetermined Abnormal ECG
--- NOTE | 2016-12-08 10:15 | CARD ---
APPROVED REPORT EKG Measurement Heart [id number] <Conclusion> Atrial fibrillation nonspecific st changes
[2016-12-08] MEDS ORDERED: Metoprolol 1 mg/ml Inj IVP ONE ×2 (16:20→17:10)
[2016-12-08] MEDS ORDERED: Digoxin 250 mcg (0.25 mg) Tab PO ONE (17:51)
--- NOTE | 2016-12-08 17:55 | CP.PCM.CON ---
History of Present Illness - History of Present Illness History of Present Illness: I was asked for an Interventional Cardiology Consultation by Dr. Copeland. Patient is a 76 year old female with PMH HTN, DM who presentsed to [place] with chest pain. She describes the onset of symptoms about 3 days ago, with chest pressure and dyspnea. She presented to [facility] and was found to be in a atrial fibrillation with RVR. The patient ruled in for myocardial infarction, and it was felt that due to history of DM and elevated troponin she would benefit from cardiac cath. The patient denies current chest pain or dyspnea. Her daughter is at the bedside. Review of Systems - Constitutional Constitutional: absent: As Per HPI, Anorexia, Chills, Daytime Sleepiness, Excessive Sweating, Fatigue, Fever, Frequent Falls, Headache, Increased Appetite , Lethargy, Malaise, Night Sweats, Snoring, Sleep Apnea, Weight Gain, Weight Loss, Weakness, Other - EENT Eyes: absent: As Per HPI, Blind Spots, Blurred Vision, Change in Vision, Decreased Night Vision, Diplopia, Discharge, Dry Eye, Exophthalmos, Floaters, Irritation, Itchy Eyes, Loss of Peripheral Vision, Pain, Photophobia, Requires Corrective Lenses, Sees Flashes, Spots in Vision, Tunnel Vision, Other Visual Disturbances, Loss of Vision, Other Ears: absent: As Per HPI, Decreased Hearing, Ear Discharge, Ear Pain, Tinnitus, Abnormal Hearing, Disequilibrium, Dizziness, Other Nose/Mouth/Throat: absent: As Per HPI, Epistaxis, Nasal Congestion, Nasal Discharge, Nasal Obstruction, Nasal Trauma, Nose Pain, Post Nasal Drip, Sinus Pain, Sinus Pressure, Bleeding Gums, Change in Voice, Dental Pain, Dry Mouth, Dysphagia, Halitosis, Hoarsness, Lip Swelling, Mouth Lesions, Mouth Pain, Odynophagia, Sore Throat, Throat Swelling, Tongue Swelling, Facial Pain, Neck Pain, Neck Mass, Other - Breasts Breasts: absent: As Per HPI, Change in Shape, Mass, Pain, Nipple Discharge, Nipple Inversion, Skin Changes, Swelling, Other - Cardiovascular Cardiovascular: Chest Pain at Rest, Dyspnea - Respiratory Respiratory: Dyspnea, Dyspnea on Exertion. absent: As Per HPI, Cough, Hemoptysis, Wheezing, Snoring, Stridor, Pain on Inspiration, Chest Congestion, Excessive Mucous Production, Change in Mucous Color, Pain with Coughing, Other - Gastrointestinal Gastrointestinal: absent: As Per HPI, Abdominal Pain, Belching, Bloating, Change in Bowel Habits, Change in Stool Character, Coffee Ground Emesis, Constipation, Cramping, Diarrhea, Dyspepsia, Dysphagia, Early Satiety, Excessive Flatus, Fecal Incontinence, Heartburn, Hematemesis, Hematochezia, Loose Stools, Melena, Nausea, Odynophagia, Temesmus, Vomiting, Other - Genitourinary Genitourinary: absent: As Per HPI, Change in Urinary Stream, Difficulty Urinating, Dysuria, Flank Pain, Hematuria, Pyuria, Nocturia, Urinary Incontinence, Urinary Frequency, Urinary Hesitance, Urinary Urgency, Voiding Freq/Small Amts, Freq UTI, Hx Renal/Bladder Calculi, Hx /Renal Surgery, Bladder Distension, Other - Menstruation Menstruation: absent: As Per HPI, Amenorrhea, Amenorrhea/ Control, Currently Menstual, Cycle <21 Days, Cycle >35 Days, Cycle Variable, Menses 1-7 Days, Menses >/= 8 Days, Menses Variable, Cycle > 4 Weeks Between, No Menses for 6 Months, Heavy Menses, Light Menses, Normal Menses, Spotting Between Cycles , S/P Hysterectomy, Menopausal, Post Menopausal, Premenarche, Abnormal Vaginal Bleeding, Dysmenorrhea, Other - Musculoskeletal Musculoskeletal: absent: As Per HPI, Abnormal Gait, Arthralgias, Atrophy, Back Pain, Deformity, Joint Swelling, Limited Range of Motion, Loss of Height, Muscle Cramps, Muscle Weakness, Myalgias, Neck Pain, Numbness, Radiating Pain into Limb, Stiffness, Tingling, Other - Integumentary Integumentary: absent: As Per HPI, Acne, Alopecia, Bleeding Lesions, Change in Hair, Change in Nails, Change in Pigmentation, Changing Lesions, Dry Skin, Erythema, Furuncle, Hirsutism, Lesions, New Lesions, Non-Healing Lesions, Photosensitivity, Pruritus, Rash, Skin Pain, Skin Ulcer, Sores, Striae, Swelling , Unusual Bruising, Wounds, Jaundice, Other - Neurological Neurological: absent: As Per HPI, Abnormal Gait, Abnormal Hearing, Abnormal Movements, Abnormal Speech, Behavioral Changes, Burning Sensations, Confusion, Convulsions, Disequilibrium, Dizziness, Numbness, Focal Weakness, Frequent Falls , Headaches, Lack of Coordination, Loss of Vision, Memory Loss, Paresthesias, Radicular Pain, Restless Legs, Sensory Deficit, Syncope, Tingling, Tremor, Vertigo, Weakness, Other Visual Disturbances, Other - Psychiatric Psychiatric: absent: As Per HPI, Abnormal Sleep Pattern, Anhedonia, Anxiety, Auditory Hallucinations, Behavioral Changes, Change in Appetite, Change in Libido, Confusion, Depression, Difficulty Concentrating, Hallucinations, Homicidal Ideation, Hopelessness, Irritability, Memory Loss, Mood Swings, Panic Attacks, Paranoia, Suicidal Ideation, Visual Hallucinations, Tactile Hallucinations, Other - Endocrine Endocrine: absent: As Per HPI, Change in Body Appearance, Change in Libido, Cold Intolorance, Deepening of Voice, Excessive Sweating, Fatigue, Flushing, Heat Intolorance, Increase in Ring/Shoe/Hat Size, Palpitations, Polydipsia, Polyphagia, Polyuria, Other - Hematologic/Lymphatic Hematologic: absent: As Per HPI, Easy Bleeding, Easy Bruising, Lymphadenopathy, Other Past Patient History - Infectious Disease Hx of Infectious Diseases: None - Tetanus Immunizations Tetanus Immunization: Unknown - Past Medical History & Family History Past Medical History?: Yes - Past Social History Smoking Status: Never Smoked - CARDIAC Hx Atrial Fibrillation: No Hx Hypercholesterolemia: Yes Hx Hypertension: Yes - PULMONARY Hx Respiratory Disorders: No - NEUROLOGICAL Hx Neurological Disorder: No - HEENT Hx HEENT Problems: No - RENAL Hx Chronic Kidney Disease: No - ENDOCRINE/METABOLIC Hx Diabetes Mellitus Type 2: Yes - HEMATOLOGICAL/ONCOLOGICAL Hx Blood Disorders: No - INTEGUMENTARY Hx Dermatological Problems: No - MUSCULOSKELETAL/RHEUMATOLOGICAL Hx Falls: No - GASTROINTESTINAL Hx Gastrointestinal Disorders: No - GENITOURINARY/GYNECOLOGICAL Hx Genitourinary Disorders: No - PSYCHIATRIC Hx Substance Use: No - SURGICAL HISTORY Hx Cholecystectomy: Yes Other/Comment: bilateral venous stripping?? - ANESTHESIA Hx Anesthesia: Yes Hx Anesthesia Reactions: No Meds Allergies/Adverse Reactions: Allergies Allergy/AdvReac Type Severity Reaction Status Date / Time No Known Allergies Allergy Verified 12/05/16 13:41 - Medications Medications: Current Medications Amlodipine Besylate (Norvasc) 5 mg PO DAILY [facility] Aspirin (Aspirin Chewable) 81 mg PO DAILY [facility] Last Admin: 12/08/16 09:08 Dose: 81 mg Atorvastatin Calcium (Lipitor) 20 mg PO DAILY [facility] Last Admin: 12/08/16 09:06 Dose: 20 mg Carvedilol (Coreg) 12.5 mg PO Q12 [facility] Last Admin: 12/08/16 09:07 Dose: 12.5 mg Clopidogrel Bisulfate (Plavix) 75 mg PO DAILY [facility] Last Admin: 12/08/16 09:08 Dose: 75 mg Digoxin (Lanoxin Elixir Soln) 0.5 mg PO ONCE ONE Stop: 12/08/16 17:52 Diltiazem HCl (Cardizem) 10 mg IVP ONCE ONE Stop: 12/08/16 17:51 Enoxaparin Sodium (Lovenox) 90 mg SC Q12 [facility] PRN Reason: Protocol Insulin Human Lispro (Humalog) 0 units SC ACHS [facility] PRN Reason: Protocol Last Admin: 12/08/16 16:52 Dose: Not Given Isosorbide Mononitrate (Imdur) 60 mg PO DAILY [facility] Nitroglycerin (Nitrostat Sl Tab) 0.4 mg SL Q5M PRN PRN Reason: chest pain Pantoprazole Sodium (Protonix Ec Tab) 40 mg PO DAILY [facility] Last Admin: 12/08/16 09:07 Dose: 40 mg Valsartan (Diovan) 320 mg PO DAILY [facility] Physical Exam - Constitutional Appears: Non-toxic - Head Exam Head Exam: NORMAL INSPECTION - Eye Exam Eye Exam: Normal appearance - ENT Exam ENT Exam: Mucous Membranes Moist - Neck Exam Neck exam: Positive for: Full Rom - Respiratory Exam Respiratory Exam: Decreased Breath Sounds - Cardiovascular Exam Cardiovascular Exam: Tachycardia, Irregular Rhythm - GI/Abdominal Exam GI & Abdominal Exam: Normal Bowel Sounds - Rectal Exam Rectal Exam: Deferred - Extremities Exam Extremities exam: Negative for: pedal edema - Back Exam Back exam: NORMAL INSPECTION - Neurological Exam Neurological exam: Alert, Oriented x3 - Psychiatric Exam Psychiatric exam: Normal Affect - Skin Skin Exam: Normal Color Results - Vital Signs Recent Vital Signs: Last Vital Signs Temp 98.4 F 12/08/16 15:36 Pulse 130 H 12/08/16 17:22 Resp 20 12/08/16 15:36 BP 172/61 H 12/08/16 17:22 Pulse Ox 96 12/08/16 15:36 - Labs Result Diagrams: 12/06/16 06:02 12/07/16 08:30 Labs: Laboratory Results - last 24 hr 03/19/17 03/20/17 03/20/17 22:19 05:41 06:05 POC Glucose (mg/dL) 104 100 Hemoglobin A1c 7.0 H Thyroxine (T4) Total T3 TSH 3rd Generation 0.45 L 12/08/16 12/08/16 12/08/16 08:45 11:47 15:45 POC Glucose (mg/dL) 174 H 115 H Hemoglobin A1c Thyroxine (T4) 9.44 Total T3 0.910 L TSH 3rd Generation - EKG Data EKG Interpreted by: Myself Assessment & Plan (1) Atrial fibrillation with RVR Assessment and Plan: will give cardizem. add digoxin Status: Acute (2) DM2 (diabetes mellitus, type 2) Assessment and Plan: risk factor for CAD Status: Chronic (3) HTN (hypertension) Assessment and Plan: will continue betablocker Status: Chronic (4) Non-ST elevated myocardial infarction Assessment and Plan: given elevated troponin and diabetes, patient will benefit from cardiac catheterizaton. patient and daughter understand all risks and benefits. They agree. Status: Acute
[2016-12-08] MEDS: Enoxaparin 100 mg Syringe SC SCH (21:14)
[2016-12-09 07:23] LABS: HEMATOCRIT 40.2 % (34.0-47.0); MEAN CELL VOLUME 91.1 fl (81.0-99.0); MEAN CORPUSCULAR HEMOGLOBIN 30.1 pg (27.0-31.0); WHITE BLOOD COUNT 7.4 K/uL (4.8-10.8)
[2016-12-09] MEDS: Insulin Lispro (humaLOG) 100 Units/ml Inj SC SCH ×4 (07:30→22:00)
[2016-12-09 07:42] LABS: BLOOD UREA NITROGEN 21 mg/dl (7-17); CALCIUM 9.5 mg/dL (8.4-10.2); CARBON DIOXIDE 27 mmol/L (22-30); CHLORIDE 105 mmol/L (98-107); GFR AFRICAN-AMERICAN > 60; GLUCOSE,RANDOM 104 mg/dL (65-105); POTASSIUM 4.2 MMOL/L (3.6-5.0); SODIUM 147 mmol/l (132-148)
[2016-12-09] MEDS: Pantoprazole 40 mg EC Tab PO SCH (08:47)
[2016-12-09] MEDS: Enoxaparin 100 mg Syringe SC SCH ×2 (08:49→21:30)
[2016-12-09 08:57] VITALS: PULSE 120
[2016-12-09] MEDS ORDERED: Digoxin 500 mcg/2ml (0.5 mg/2ml) Inj IVP ONE (09:00)
--- NOTE | 2016-12-09 09:36 | CP.PCM.PN ---
Subjective - Date & Time of Evaluation Date of Evaluation: 12/09/16 Time of Evaluation: 08:30 - Subjective Subjective: Pt feels fine denies CP no palpitations noted HR to be in the 90-115 on the monitor no SOB no abd pain ate breakfast then NPO after Pt is sched for Cardiac Cath today at [facility] Objective - Vital Signs/Intake and Output Vital Signs (last 24 hours): Temp Pulse Resp BP Pulse Ox 98.3 F 94 H 18 161/107 H 98 12/09/16 08:00 12/09/16 08:48 12/09/16 08:00 12/09/16 08:48 12/09/16 08:00 - Medications Medications: Current Medications Amlodipine Besylate (Norvasc) 5 mg PO DAILY [facility] Last Admin: 12/09/16 08:48 Dose: 5 mg Aspirin (Aspirin Chewable) 81 mg PO DAILY [facility] Last Admin: 12/09/16 08:47 Dose: 81 mg Atorvastatin Calcium (Lipitor) 20 mg PO DAILY [facility] Last Admin: 12/09/16 08:47 Dose: 20 mg Carvedilol (Coreg) 12.5 mg PO Q12 [facility] Last Admin: 12/09/16 08:48 Dose: 12.5 mg Clopidogrel Bisulfate (Plavix) 75 mg PO DAILY [facility] Last Admin: 12/09/16 08:47 Dose: 75 mg Enoxaparin Sodium (Lovenox) 90 mg SC Q12 [facility] PRN Reason: Protocol Last Admin: 12/09/16 08:49 Dose: Not Given Insulin Human Lispro (Humalog) 0 units SC ACHS [facility] PRN Reason: Protocol Last Admin: 12/09/16 07:30 Dose: Not Given Isosorbide Mononitrate (Imdur) 60 mg PO DAILY [facility] Last Admin: 12/09/16 08:47 Dose: 60 mg Nitroglycerin (Nitrostat Sl Tab) 0.4 mg SL Q5M PRN PRN Reason: chest pain Pantoprazole Sodium (Protonix Ec Tab) 40 mg PO DAILY [facility] Last Admin: 12/09/16 08:47 Dose: 40 mg Valsartan (Diovan) 320 mg PO DAILY [facility] Last Admin: 12/09/16 08:49 Dose: 320 mg - Labs Labs: 12/09/16 05:55 12/09/16 05:55 PT 10.3 SECONDS (9.6-11.2) 12/05/16 13:50 INR 0.99 (0.92-1.08) 12/05/16 13:50 APTT 23.3 SECONDS (23.3-32.5) 12/05/16 13:50 - Constitutional Appears: No Acute Distress - Head Exam Head Exam: NORMAL INSPECTION, NORMOCEPHALIC - Eye Exam Eye Exam: EOMI, Normal appearance Pupil Exam: NORMAL ACCOMMODATION - ENT Exam ENT Exam: Mucous Membranes Moist, Normal External Ear Exam - Neck Exam Neck Exam: Full ROM. absent: Meningismus - Respiratory Exam Respiratory Exam: NORMAL BREATHING PATTERN. absent: Respiratory Distress - Cardiovascular Exam Cardiovascular Exam: Tachycardia, Irregular Rhythm, +S1, +S2 - GI/Abdominal Exam GI & Abdominal Exam: Soft, Normal Bowel Sounds. absent: Tenderness - Extremities Exam Extremities Exam: Full ROM. absent: Calf Tenderness trace Pedal Edema - Back Exam Back Exam: Full ROM, NORMAL INSPECTION. absent: CVA tenderness (L), CVA tenderness (R), paraspinal tenderness - Neurological Exam Neurological Exam: Alert, Awake, CN II-XII Intact, Oriented x3 Neuro motor strength exam: Left Upper Extremity: 5, Right Upper Extremity: 5, Left Lower Extremity: 5, Right Lower Extremity: 5 - Psychiatric Exam Psychiatric exam: Normal Affect, Normal Mood - Skin Skin Exam: Dry, Normal Color, Warm Assessment and Plan (1) Chest pain Status: Acute (2) Atrial fibrillation with RVR Status: Acute (3) DM2 (diabetes mellitus, type 2) Status: Chronic (4) HTN (hypertension) Status: Chronic (5) DVT prophylaxis Status: Acute (6) Elevated troponin Status: Acute - Assessment and Plan (Free Text) Assessment: 76 y/o lady with hx of HTN, DM, came in bec of chest pain ,palpitations and SOB , found to be in A Fib with RVR. Troponin elevated up to 2.2. (1) Chest pain prob NSTEMI - need further cardiac work up Status: Acute CP prob sec to NSTEMI and also from rapid A fib Pt admitted to Tele started on ASA, Plavix, therapeutic dose of Lovenox, Coreg, Diovan , Imdur and statin Troponin elevated = up to 2.2 Cardio consulted: Dr Jenkins ECHOcardiogram: normal LV function and wall motion Discussed with pt's PCP- Dr Oropeza- rec Cardiac cath for further eval given high risk factors- Dr Galindo consulted Pt to be transferred to [facility] today for Cardiac cath (2) New Onset Afib with RVR Status: Acute HR difficult to control with episodes of cale and tachy received Cardizem IV in ED cont Coreg - decreased dose to 12.5 cont therapeutic Lovenox Discussed with Dr Galindo- rec to given Digoxin IV 0.5 then start Dig at 0.125 mg daily (3) DM2 (diabetes mellitus, type 2) Status: Acute accuchek ACHS with low Lispro coverage. [id number]=3 hold Metformin as pt is sched for cardiac cath (4) HTN (hypertension) uncontrolled Status: Acute cont Coreg Increased Diovan dose to 320 mg daily , Imdur 60mg daily added Norvasc monitor BP (5) DVT prophylaxis Status: Acute on therapeutic dose of Lovenox 90mg SC q 12hrs (6) Euthyroid Sick Syndrome TSH low however T4 normal and T3 low rpt TSH as outpt
[2016-12-10] MEDS: Insulin Lispro (humaLOG) 100 Units/ml Inj SC SCH ×4 (06:38→21:49)
[2016-12-10] MEDS: Pantoprazole 40 mg EC Tab PO SCH (09:03)
[2016-12-10] MEDS: Enoxaparin 100 mg Syringe SC SCH (09:13)
--- NOTE | 2016-12-10 17:14 | CP.PCM.PN ---
Subjective - Date & Time of Evaluation Date of Evaluation: 12/10/16 Time of Evaluation: 11:30 - Subjective Subjective: Pt seen and examined. Had sinus bradycardia in the 30's but remained asymptomatic. Did not receive Coreg and Norvasc. Objective - Vital Signs/Intake and Output Vital Signs (last 24 hours): Temp Pulse Resp BP Pulse Ox 98.2 F 61 20 150/83 97 12/10/16 16:05 12/10/16 16:05 12/10/16 16:05 12/10/16 16:05 12/10/16 16:05 - Medications Medications: Current Medications Amlodipine Besylate (Norvasc) 5 mg PO DAILY [facility] Last Admin: 12/10/16 09:00 Dose: Not Given Aspirin (Aspirin Chewable) 81 mg PO DAILY [facility] Last Admin: 12/10/16 09:03 Dose: 81 mg Atorvastatin Calcium (Lipitor) 20 mg PO DAILY [facility] Last Admin: 12/10/16 09:03 Dose: 20 mg Carvedilol (Coreg) 12.5 mg PO Q12 [facility] Last Admin: 12/10/16 09:13 Dose: Not Given Clopidogrel Bisulfate (Plavix) 75 mg PO DAILY [facility] Last Admin: 12/10/16 09:04 Dose: 75 mg Enoxaparin Sodium (Lovenox) 90 mg SC Q12 [facility] PRN Reason: Protocol Last Admin: 12/10/16 09:13 Dose: 90 mg Insulin Human Lispro (Humalog) 0 units SC ACHS [facility] PRN Reason: Protocol Last Admin: 12/10/16 06:38 Dose: Not Given Isosorbide Mononitrate (Imdur) 60 mg PO DAILY [facility] Last Admin: 12/10/16 09:03 Dose: 60 mg Nitroglycerin (Nitrostat Sl Tab) 0.4 mg SL Q5M PRN PRN Reason: chest pain Pantoprazole Sodium (Protonix Ec Tab) 40 mg PO DAILY [facility] Last Admin: 12/10/16 09:03 Dose: 40 mg Valsartan (Diovan) 320 mg PO DAILY [facility] Last Admin: 12/10/16 09:08 Dose: 320 mg - Labs Labs: 12/09/16 05:55 12/09/16 05:55 PT 10.3 SECONDS (9.6-11.2) 12/05/16 13:50 INR 0.99 (0.92-1.08) 12/05/16 13:50 APTT 23.3 SECONDS (23.3-32.5) 12/05/16 13:50 - Constitutional Appears: No Acute Distress - Head Exam Head Exam: ATRAUMATIC - Eye Exam Eye Exam: absent: Scleral icterus - ENT Exam ENT Exam: Mucous Membranes Moist - Neck Exam Neck Exam: absent: Meningismus - Respiratory Exam Respiratory Exam: absent: Rhonchi, Wheezes, Respiratory Distress - Cardiovascular Exam Cardiovascular Exam: Bradycardia - GI/Abdominal Exam GI & Abdominal Exam: Soft. absent: Tenderness - Rectal Exam Rectal Exam: Deferred - Neurological Exam Neurological Exam: Alert, Oriented x3 - Psychiatric Exam Psychiatric exam: Normal Affect - Skin Skin Exam: Dry, Intact Assessment and Plan (1) Chest pain Status: Acute (2) Afib Status: Acute (3) DM2 (diabetes mellitus, type 2) Status: Chronic (4) HTN (hypertension) Status: Chronic (5) DVT prophylaxis Status: Acute - Assessment and Plan (Free Text) Plan: 76 yo female with history of HTN and DM admitted because of chest pain, AFib with RVR and SOB. Troponins were elevated (1) Chest pain Troponins were elevated however cardiac cath done yesterday was negative for blockage continue ASA, Plavix, therapeutic Lovenox, Coreg, Diovan, Imdur and statin ECHOcardiogram: normal LV function and wall motion (2) New Onset Afib with RVR HR difficult to control because of alternating cale and tachy today noted to have severe sinus bradycardia but asymptomatic hold Cardizem and Norvasc for possible EP study by Dr Calloway on therapeutic Lovenox (3) DM2 (diabetes mellitus, type 2) accuchek ACHS with low Lispro coverage. [id number] will resume Metformin tomorrow (4) HTN (hypertension) uncontrolled BP stable Increased Diovan to 320 mg daily, Imdur 60mg daily hold Norvasc (5) DVT prophylaxis on therapeutic dose of Lovenox 90mg SC q 12hrs
--- NOTE | 2016-12-10 19:44 | CP.PCM.PN ---
Subjective - Date & Time of Evaluation Date of Evaluation: 12/10/16 Time of Evaluation: 19:00 - Subjective Subjective: patient is s/p cardiac cath revealing no signficant CAD. Noted to be in 2:1 block with profound bradycardia. Objective - Vital Signs/Intake and Output Vital Signs (last 24 hours): Temp Pulse Resp BP Pulse Ox 98.3 F 60 20 143/74 97 12/10/16 19:28 12/10/16 19:28 12/10/16 19:28 12/10/16 19:28 12/10/16 19:28 - Medications Medications: Current Medications Amlodipine Besylate (Norvasc) 5 mg PO DAILY [facility] Last Admin: 12/10/16 09:00 Dose: Not Given Aspirin (Aspirin Chewable) 81 mg PO DAILY [facility] Last Admin: 12/10/16 09:03 Dose: 81 mg Atorvastatin Calcium (Lipitor) 20 mg PO DAILY [facility] Last Admin: 12/10/16 09:03 Dose: 20 mg Carvedilol (Coreg) 12.5 mg PO Q12 [facility] Last Admin: 12/10/16 09:13 Dose: Not Given Clopidogrel Bisulfate (Plavix) 75 mg PO DAILY [facility] Last Admin: 12/10/16 09:04 Dose: 75 mg Enoxaparin Sodium (Lovenox) 90 mg SC Q12 [facility] PRN Reason: Protocol Last Admin: 12/10/16 09:13 Dose: 90 mg Insulin Human Lispro (Humalog) 0 units SC ACHS [facility] PRN Reason: Protocol Last Admin: 12/10/16 17:17 Dose: Not Given Isosorbide Mononitrate (Imdur) 60 mg PO DAILY [facility] Last Admin: 12/10/16 09:03 Dose: 60 mg Nitroglycerin (Nitrostat Sl Tab) 0.4 mg SL Q5M PRN PRN Reason: chest pain Pantoprazole Sodium (Protonix Ec Tab) 40 mg PO DAILY [facility] Last Admin: 12/10/16 09:03 Dose: 40 mg Valsartan (Diovan) 320 mg PO DAILY [facility] Last Admin: 12/10/16 09:08 Dose: 320 mg - Labs Labs: 12/09/16 05:55 12/09/16 05:55 PT 10.3 SECONDS (9.6-11.2) 12/05/16 13:50 INR 0.99 (0.92-1.08) 12/05/16 13:50 APTT 23.3 SECONDS (23.3-32.5) 12/05/16 13:50 - Constitutional Appears: Non-toxic - Head Exam Head Exam: NORMAL INSPECTION - Eye Exam Eye Exam: Normal appearance - ENT Exam ENT Exam: Mucous Membranes Moist - Neck Exam Neck Exam: Full ROM - Respiratory Exam Respiratory Exam: NORMAL BREATHING PATTERN - Cardiovascular Exam Cardiovascular Exam: Bradycardia - GI/Abdominal Exam GI & Abdominal Exam: Normal Bowel Sounds - Rectal Exam Rectal Exam: Deferred - Extremities Exam Extremities Exam: Pedal Edema - Back Exam Back Exam: NORMAL INSPECTION - Neurological Exam Neurological Exam: Alert - Psychiatric Exam Psychiatric exam: Normal Affect - Skin Skin Exam: Normal Color Assessment and Plan (1) Atrial fibrillation with RVR Assessment & Plan: resolved Status: Acute (2) DM2 (diabetes mellitus, type 2) Assessment & Plan: medical therapy Status: Chronic (3) HTN (hypertension) Assessment & Plan: avoiding AV jasmeet elo at the moment due to 2:1 block. will need PPM Status: Chronic (4) Non-ST elevated myocardial infarction Assessment & Plan: no angiographic evidence of CAD. Status: Acute (5) AV block Assessment & Plan: will need PPM. discussed with patient and family at length who understand and agree. Status: Acute
[2016-12-11] MEDS: Insulin Lispro (humaLOG) 100 Units/ml Inj SC SCH ×4 (08:30→23:13)
[2016-12-11] MEDS: Pantoprazole 40 mg EC Tab PO SCH (09:56)
--- NOTE | 2016-12-11 11:55 | CARD ---
APPROVED REPORT EKG Measurement Heart [id number] <Conclusion> Marked sinus bradycardia Possible Inferior infarct, age undetermined Abnormal ECG
--- NOTE | 2016-12-11 13:06 | CP.PCM.PN ---
Subjective - Date & Time of Evaluation Date of Evaluation: 12/11/16 Time of Evaluation: 10:30 - Subjective Subjective: Pt seen and examined. Denied any complaint. Waiting for pacemaker insertion today. Objective - Vital Signs/Intake and Output Vital Signs (last 24 hours): Temp Pulse Resp BP Pulse Ox 98.2 F 65 18 162/77 H 97 12/11/16 12:35 12/11/16 12:35 12/11/16 12:35 12/11/16 12:35 12/11/16 12:35 - Medications Medications: Current Medications Amlodipine Besylate (Norvasc) 5 mg PO DAILY [facility] Last Admin: 12/11/16 09:55 Dose: 5 mg Aspirin (Aspirin Chewable) 81 mg PO DAILY [facility] Last Admin: 12/11/16 09:37 Dose: Not Given Atorvastatin Calcium (Lipitor) 20 mg PO DAILY [facility] Last Admin: 12/11/16 09:56 Dose: 20 mg Carvedilol (Coreg) 12.5 mg PO Q12 [facility] Last Admin: 12/11/16 09:29 Dose: Not Given Clopidogrel Bisulfate (Plavix) 75 mg PO DAILY [facility] Last Admin: 12/11/16 09:35 Dose: Not Given Enoxaparin Sodium (Lovenox) 90 mg SC Q12 [facility] PRN Reason: Protocol Last Admin: 12/10/16 09:13 Dose: 90 mg Insulin Human Lispro (Humalog) 0 units SC ACHS [facility] PRN Reason: Protocol Last Admin: 12/11/16 08:30 Dose: Not Given Isosorbide Mononitrate (Imdur) 60 mg PO DAILY [facility] Last Admin: 12/11/16 09:56 Dose: 60 mg Nitroglycerin (Nitrostat Sl Tab) 0.4 mg SL Q5M PRN PRN Reason: chest pain Pantoprazole Sodium (Protonix Ec Tab) 40 mg PO DAILY [facility] Last Admin: 12/11/16 09:56 Dose: 40 mg Valsartan (Diovan) 320 mg PO DAILY [facility] Last Admin: 12/11/16 09:56 Dose: 320 mg - Labs Labs: 12/09/16 05:55 12/09/16 05:55 PT 10.3 SECONDS (9.6-11.2) 12/05/16 13:50 INR 0.99 (0.92-1.08) 12/05/16 13:50 APTT 23.3 SECONDS (23.3-32.5) 12/05/16 13:50 - Constitutional Appears: No Acute Distress - Head Exam Head Exam: ATRAUMATIC - Eye Exam Eye Exam: absent: Scleral icterus - ENT Exam ENT Exam: Mucous Membranes Moist - Neck Exam Neck Exam: absent: Meningismus - Respiratory Exam Respiratory Exam: absent: Rhonchi, Wheezes, Respiratory Distress - Cardiovascular Exam Cardiovascular Exam: REGULAR RHYTHM, +S1, +S2 - GI/Abdominal Exam GI & Abdominal Exam: Soft. absent: Tenderness - Rectal Exam Rectal Exam: Deferred - Neurological Exam Neurological Exam: Alert, Oriented x3 - Psychiatric Exam Psychiatric exam: Normal Affect - Skin Skin Exam: Dry, Intact Assessment and Plan (1) Chest pain Status: Inactive (2) Afib Status: Resolved (3) DM2 (diabetes mellitus, type 2) Status: Chronic (4) HTN (hypertension) Status: Chronic (5) DVT prophylaxis Status: Acute - Assessment and Plan (Free Text) Assessment: 76 yo female with history of HTN and DM admitted because of chest pain, AFib with RVR and SOB. Troponins were elevated (1) Chest pain presently asymptomatic Troponins were elevated however cardiac cath done yesterday showed no evidence of CAD continue ASA, Plavix, therapeutic Lovenox, Coreg, Diovan, Imdur and statin ECHOcardiogram: normal LV function and wall motion (2) New Onset Afib with RVR resolved was bradycardic yesterday with 2:1 block continue hold on Cardizem and Norvasc for pacemaker insertion today (3) DM2 (diabetes mellitus, type 2) BS controlled (4) HTN (hypertension) uncontrolled BP elevated all meds were held prior to pacemaker insertion (5) DVT prophylaxis Lovenox on hold prior to pacemaker placement
--- NOTE | 2016-12-11 15:46 | CON ---
DATE: 12/10/2016 REASONS FOR EVALUATION: 1. Tachybrady syndrome. 2. 2:1 heart block. 3. Chest pain, coronary artery disease. REFERRING PHYSICIAN: Dr. Debi Galindo The patient is a 76-year-old Columbian female with past medical history significant for hypertension, diabetes, who presented to [facility] in atrial fibrillation with rapid ventricular response with associated chest pressure and dyspnea. The patient underwent AMI protocol. The patie nt did have elevated troponins. The patient's rates were controlled initially with Cardizem and digo ibis. She then went for left heart catheterization, which was negative for significant obstructive co ronary disease. The patient then developed significant bradycardia with episodic 2:1 block. The pat ient clearly has sick sinus syndrome. I was asked to see her in regards to further management. The patient was evaluated via a enterprise cloud architect. The patient is mainly Micronesian speaking. REVIEW OF SYSTEMS: Denies any fevers, chills, anorexia, sleepiness, excessive sweating, fevers, chil ls, headache, appetite changes, weight changes. No visual disturbances. No ENT complaints. No coug h, wheezing, sputum production. No nausea, vomiting, diarrhea, constipation, bloating. No urinary c omplaints. No complaints. No generalized weakness or focal weakness. No psychosocial stressors. No heat or cold intolerance. No polydipsia or polyphagia. PAST MEDICAL HISTORY: As mentioned previously, hypertension, hypercholesterolemia, atrial fibrillati on. RELEVANT LABORATORY WORK: On review, patient has a white count of 7.2, H and H of 11.3 and 34.7, kathy telet count 193. INR is 0.99 on the 17th. Chemistry: Potassium is 4.2. BUN and creatinine is 21 and 0.8. PHYSICAL EXAMINATION: VITAL SIGNS: Temperature is 98.3, pulse rate of 60, blood pressure is 143/74, mean arterial pressure of 97. GENERAL: She is a well-developed, well-nourished, female, in no distress. HEENT: Head is normocephalic, atraumatic. There is no anna facial asymmetry. Mucous membranes ernestina ear moist. CHEST: Clear to auscultation bilaterally. CARDIOVASCULAR: Bradycardic, S1, S2. No S3 or S4. ABDOMEN: Obese, soft, nontender, nondistended. Positive bowel sounds. EXTREMITIES: No cyanosis, clubbing, or edema. On review of EKG on presentation, shows coarse atrial fibrillation with rapid ventricular response at 110 beats per minute, normal axis across the limb leads, poor precordial R-wave progression, nonspec ific ST-T wave changes. Echocardiogram which was done on 12/05/2016 shows normal LV size and function , EF of 55%, normal segmental wall motion, aortic valve within normal limits, mitral valve, tricuspid valve within normal limits, pulmonic valve within normal limits. MEDICATIONS: Amlodipine 5 mg p.o. daily, aspirin 81 mg p.o. daily, Lipitor 20 mg p.o. at bedtime, Co reg 12.5 mg q. 12 hours, enoxaparin 90 mg subQ q. 12 hours, Imdur 60 mg p.o. daily, Diovan 320 mg p.o . daily. ASSESSMENT AND PLAN 1. Tachycardic syndrome. At this point, appears to have periods of atrial fibrillation, followed by significant bradycardia. At this point, we would recommend a permanent pacemaker. I have discussed the case with Dr. Debi Galindo. He is in agreement. We will make arrangements for her to under go permanent pacemaker implantation. 2. 2:1 heart block, for which a permanent pacemaker can and should be placed. 3. Chest pain, coronary artery disease. No finding of significant ischemia. We will continue medic al management at this point. Thank you for allowing me to participate in the care of your patient. Please do not hesitate to call if you have any questions in regards to her care. Tunde Treviño MD cc:Ana Paula Copeland MD; Debi Galindo MD [phone] TT: 12/11/2016 11:09:00 Confirmation # [id number] Dictation # [id number] en
[2016-12-11] MEDS ORDERED: Propofol 10 mg/ml Inj (20 ML) ONE (16:48)
[2016-12-11] MEDS ORDERED: Midazolam 2 MG/2 ML VIAL ONE (16:49)
[2016-12-11] MEDS ORDERED: Lidocaine Hydrochloride 5 ML INJ ONE (16:49)
[2016-12-11] MEDS ORDERED: Lidocaine 1% Inj (20ml) ONE (17:13)
[2016-12-11] MEDS ORDERED: Liquid Adhesive TOP ONE (17:13)
[2016-12-11] MEDS ORDERED: Bacitracin Ointment 30 GM TUBE ONE (17:14)
[2016-12-11] MEDS ORDERED: Sodium Chloride 0.9% 10 ML IV ONE (17:15)
[2016-12-11] MEDS ORDERED: Sodium Chloride 0.9% 500 ML IV ONE (20:20)
[2016-12-11] MEDS ORDERED: Lidocaine 1% Inj (20ml) IJ ONE (21:02)
[2016-12-11] MEDS ORDERED: Iohexol 300 10 ML ONE (21:24)
[2016-12-11] MEDS ORDERED: Bacitracin OINT 15GM TOP ONE (21:45)
[2016-12-11] MEDS ORDERED: Sodium Chloride 0.9% 1,000 ML IV SCH (22:30)
[2016-12-11] MEDS: Oxycodone/Acetaminophen 5/325 mg Tab PO PRN (23:17)
--- NOTE | 2016-12-12 03:13 | OP ---
PROCEDURE DATE: 12/11/2016 DATE OF OPERATION: 12/11/2016. PROCEDURE: Implantation of dual chamber permanent pacemaker. DIAGNOSES: Sick sinus syndrome, atrial fibrillation, symptomatic bradycardia, hypertension. BRIEF HISTORY: The patient is a 76-year-old Georgian female with past medical history significant f or hypertension and diabetes who presented to [facility] in atrial fibrillation with rapid ventricular response. The patient underwent cardiac catheterization in the setting of small t roponin spills with no significant findings. The patient initially was treated for rapid atrial fibr illation with Cardizem and digoxin and ultimately developed eventual 2:1 block with heart rates in th e 30s-40s at times. The patient clearly met indication for a permanent pacemaker for the treatment o f tachybrady syndrome. The patient was scheduled for late this evening, this evening developed atria l fibrillation with rapid ventricular response prior to the procedure. She was placed on Cardizem de spite having heart rates in the 120s. Patient did remain hemodynamically stable and relatively asymp tomatic at rest. Informed consent was received for the procedure. Detailed discussions were also wang d with the daughter and granddaughter who were at the bedside at the time of obtaining consent. Risk s and benefits of the procedure were described in detail. The patient was agreeable and informed con sent was received for both the procedure, as well as anesthesia. PROCEDURE: The patient was brought to the operating suite in a postabsorptive state. The left pecto ral area was draped and prepped in a sterile fashion, 2% lidocaine solution was injected into the mine gical site. Using a 9 blade, a 3-1/2 cm incision was made 2 fingerbreadths below the clavicle using blunt dissection and electrocautery, the fascial planes were dissected. A diminutive cephalic vein w as identified. Reasonable attempts were made to cannulation of this vein in order to achieve venous access; however, this was not possible because of the diminutive nature of this vein. Therefore, a s ubclavian stick was performed without incident. Once venous access was obtained, a 0.035 guidewire w as inserted via this access point and followed under fluoroscopy to the superior vena cava. A 9 Fren ch SafeSheath was inserted via this wire, again without difficulty. A unbound technologiestronic 5076 52 cm lead, ser ial number [id number], was inserted via the sheath and manipulated into the right ventricular apex. Threshold is as follows: 0.6 volts at 0.5 milliseconds, and impedance of 1202. R waves measured 13. 9. Leads was then sutured in this position. Once confirmed on fluoroscopy, using retained access, a n 0.035 guidewire was inserted via the original access point. A 7-Yakut SafeSheath was then inserte d again without difficulty. The right atrial lead is a 5076 45 cm lead, serial number [id number], wa s inserted via the sheath and manipulated into the right atrial appendage again without difficulty. Parameters on this lead through the program system analyzer is as follows: Threshold is 0.5 volts at 0.5 milliseconds, impedance of 554, P waves measured 2.8. The leads were then confirmed under fluor oscopy and tied down using 0 silk suture. Additional ligatures were applied to achieve hemostasis. Subfascial pocket was then made, irrigated with bacitracin solution. A pulse generator, which is a Emp[employer] safe Advisa device, serial number [id number] was inserted via the sheath and manipulate d into the subfascial pocket. 0 silk suture was then used to bring the fascial and muscular layers t ogether. The superficial fascial and skin layers were brought together using 2 layers of 2-0 Vicryl. Final layer was closed with Mastisol and Steri-Strips. Telfa was then applied to the wound and a s mall pressure dressing was applied. Of note, the patient went from rapid atrial fibrillation at the beginning of the case to normal sinus rhythm towards the middle of the case. PLAN: The patient will be placed back on telemetry. Chest x-ray, 12-lead EKG will be performed. Th e patient will be maximized on AV jasmeet end rate slowing agents. If postop checks, which include the chest x-ray, are within normal limits, the patient may be discharged perhaps as soon as tomorrow str ictly from an electrophysiologic standpoint. Thank you for allowing me to participate in the care of your patient. Please do not hesitate to call if you have any questions in regards to her care. Tunde Treviño MD cc: [phone] TT: 12/12/2016 03:13:25 mn
[2016-12-12] MEDS: Oxycodone/Acetaminophen 5/325 mg Tab PO PRN ×2 (06:32→15:28)
[2016-12-12] MEDS: Insulin Lispro (humaLOG) 100 Units/ml Inj SC SCH (06:47)
--- NOTE | 2016-12-12 07:56 | CARD ---
APPROVED REPORT EKG Measurement Heart [id number] OR 190P-14 [id number] <Conclusion> Atrial-paced rhythm Inferior infarct, age undetermined Abnormal ECG
[2016-12-12] MEDS: Pantoprazole 40 mg EC Tab PO SCH (09:08)
--- NOTE | 2016-12-12 10:07 | RAD ---
PROCEDURE: CHEST RADIOGRAPH, 1 VIEW HISTORY: post PPM implant COMPARISON: Comparison chest dated 12/05/2016 FINDINGS: LUNGS: Clear. PLEURA: No pneumothorax or pleural fluid seen. CARDIOVASCULAR: Interval placement bipolar pacemaker. OSSEOUS STRUCTURES: No significant abnormalities. VISUALIZED UPPER ABDOMEN: Normal. OTHER FINDINGS: None. IMPRESSION: Interval placement bipolar pacemaker. No apparent pneumothorax.
--- NOTE | 2016-12-12 12:23 | CP.PCM.DIS ---
Provider - Provider Date of Admission: 12/05/16 16:25 Attending physician: Neri Sewell MD Primary care physician: Dr. Oropeza Consults: cardiology consult interventional cardiology consult Ultrasound Technician consult PT consult Time Spent in preparation of Discharge (in minutes): 20 Diagnosis - Discharge Diagnosis (1) Atrial fibrillation with RVR Status: Acute (2) HTN (hypertension) Status: Chronic (3) SSS (sick sinus syndrome) Status: Acute Hospital Course - Lab Results Lab Results: Most Recent Lab Values WBC 7.4 K/uL (4.8-10.8) 12/09/16 05:55 RBC 4.41 Mil/uL (3.80-5.20) 12/09/16 05:55 Hgb 13.3 g/dL (12.0-16.0) D 12/09/16 05:55 Hct 40.2 % (34.0-47.0) 12/09/16 05:55 MCV 91.1 fl (81.0-99.0) 12/09/16 05:55 MCH 30.1 pg (27.0-31.0) 12/09/16 05:55 MCHC 33.0 g/dL (33.0-37.0) 12/09/16 05:55 RDW 14.0 % (11.5-14.5) 12/09/16 05:55 Plt Count 177 K/uL (130-400) 12/09/16 05:55 MPV 8.1 fl (7.2-11.7) 12/06/16 06:02 Neut % (Auto) 50.4 % (50.0-75.0) 12/06/16 06:02 Lymph % (Auto) 35.1 % (20.0-40.0) 12/06/16 06:02 [place] % (Auto) 9.3 % (0.0-10.0) 12/06/16 06:02 Eos % (Auto) 4.8 % (0.0-4.0) H 12/06/16 06:02 Baso % (Auto) 0.4 % (0.0-2.0) 12/06/16 06:02 Neut # 3.1 K/uL (1.8-7.0) 12/06/16 06:02 Lymph # 2.2 K/uL (1.0-4.3) 12/06/16 06:02 [place] # 0.6 K/uL (0.0-0.8) 12/06/16 06:02 Eos # 0.3 K/uL (0.0-0.7) 12/06/16 06:02 Baso # 0.0 K/uL (0.0-0.2) 12/06/16 06:02 PT 10.3 SECONDS (9.6-11.2) 12/05/16 13:50 INR 0.99 (0.92-1.08) 12/05/16 13:50 APTT 23.3 SECONDS (23.3-32.5) 12/05/16 13:50 Sodium 147 mmol/l (132-148) 12/09/16 05:55 Potassium 4.2 MMOL/L (3.6-5.0) 12/09/16 05:55 Chloride 105 mmol/L (98-107) 12/09/16 05:55 Carbon Dioxide 27 mmol/L (22-30) 12/09/16 05:55 Anion Gap 19 (10-20) 12/09/16 05:55 BUN 21 mg/dl (7-17) H 12/09/16 05:55 Creatinine 0.8 mg/dL (0.7-1.2) 12/09/16 05:55 Est GFR ( Amer) > 60 12/09/16 05:55 Est GFR (Non-Af Amer) > 60 12/09/16 05:55 POC Glucose (mg/dL) 136 mg/dL (65-110) H 12/11/16 22:29 Random Glucose 104 mg/dL (65-105) 12/09/16 05:55 Hemoglobin A1c 7.0 % (4.2-6.5) H 12/08/16 06:05 Calcium 9.5 mg/dL (8.4-10.2) 12/09/16 05:55 Total Bilirubin 0.8 mg/dl (0.2-1.3) 12/05/16 13:50 AST 51 U/L (14-36) H 12/05/16 13:50 ALT 42 U/L (9-52) 12/05/16 13:50 Alkaline Phosphatase 77 U/L (38-126) 12/05/16 13:50 Troponin I 0.7930 ng/mL (0.00-0.120) H* 12/07/16 08:30 NT-Pro-B Natriuret Pep 426 pg/ml (0-900) 12/05/16 13:50 Total Protein 8.2 G/DL (6.3-8.2) 12/05/16 13:50 Albumin 4.3 g/dL (3.5-5.0) 12/05/16 13:50 Globulin 3.9 gm/dL (2.2-3.9) 12/05/16 13:50 Albumin/Globulin Ratio 1.1 (1.0-2.1) 12/05/16 13:50 Triglycerides 180 mg/DL (0-149) H 12/06/16 06:02 Cholesterol 123 mg/dL (0-199) 12/06/16 06:02 LDL Cholesterol Direct 53 mg/dL (0-129) 12/06/16 06:02 HDL Cholesterol 37 MG/DL (30-70) 12/06/16 06:02 Thyroxine (T4) 9.44 ug/dl (5.5-11.0) 12/08/16 08:45 Total T3 0.910 nmol/L (1.49-2.60) L 12/08/16 08:45 TSH 3rd Generation 0.45 mIU/ML (0.46-4.68) L 12/08/16 06:05 - Hospital Course Hospital Course: 76 yo female with history of HTN and DM admitted because of chest pain, AFib with RVR and SOB. Troponins were elevated . cardiology was consulted and she wsa started on BB, Statin, , plavix , ARB , Imdur, lovenox therapeutic. Her HR was controlled with cardizem and digoxin .Cardiology consulted and patient taken to cardiac cath that showed no CAD . Than she developed significant bradycarda with 2:1 block. 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 At present patient is SR on monitor with no Chest , SOB. Hemodynamically stable. Cleared by cardiology for discharge. Will alvina to follow up in 1week with Dr. Galindo 1 Chest pain presently asymptomatic Troponins were elevated however cardiac cath done yesterday showed no evidence of CAD NSTEMI ruled out continue LEXI, eliquist Coreg, Diovan, Imdur and statin D/c plavix after discussion with Dr Galindo ECHO showed normal LV function and wall motion 2.New Onset Afib with RVR resolved developed bradycardia with 2:1 block s/p pacemaker placement continue coreg, cardiadama and eliquist 3. SSS s/p pacemaker placement 4. DM2 (diabetes mellitus, type 2) BS controlled with no meds 5. HTN (hypertension) betterr controlled on discharge (5) DVT prophylaxis Lovenox on hold prior to pacemaker placement Discharge Exam - Head Exam Head Exam: ATRAUMATIC, NORMOCEPHALIC - Eye Exam Eye Exam: EOMI, Normal appearance, PERRL Pupil Exam: NORMAL ACCOMODATION - ENT Exam ENT Exam: Mucous Membranes Moist, Normal Exam - Neck Exam Neck exam: Full Rom, Normal Inspection - Respiratory Exam Respiratory Exam: Clear to PA & Lateral, NORMAL BREATHING PATTERN. absent: Rhonchi - Cardiovascular Exam Cardiovascular Exam: REGULAR RHYTHM, RRR, +S1, +S2. absent: JVD - GI/Abdominal Exam GI & Abdominal Exam: Normal Bowel Sounds, Soft. absent: Distended, Guarding, Rebound, Tenderness - Rectal Exam Rectal Exam: Deferred - Extremities Exam Extremities exam: normal capillary refill, normal inspection, pedal pulses present - Back Exam Back exam: NORMAL INSPECTION - Neurological Exam Neurological exam: Alert, CN II-XII Intact, Oriented x3, Reflexes Normal - Psychiatric Exam Psychiatric exam: Normal Affect, Normal Mood - Skin Skin Exam: Dry, Intact, Normal Color, Warm Discharge Plan - Discharge Medications Prescriptions: diltiaZEM [Cardizem] 60 mg PO Q8 #90 tab Carvedilol [Coreg] 12.5 mg PO Q12 #60 tab Valsartan [Diovan] 320 mg PO DAILY #60 tab Apixaban [Eliquis] 5 mg PO BID #60 tablet Isosorbide Mononitrate [Imdur] 60 mg PO DAILY #30 tab Atorvastatin [Lipitor] 20 mg PO DAILY #30 tab oxyCODONE/Acetaminophen [Percocet 5/325 mg Tab] 1 tab PO Q4 PRN #20 tab PRN Reason: Pain, Moderate (4-7) - Follow Up Plan Condition: STABLE Disposition: HOME/ ROUTINE Patient education suggested?: Yes Referrals: Debi Galindo MD [Family Provider] - Cain Oropeza MD [Staff Provider] -
[2016-12-12 12:36] VITALS: PULSE 60; RESP 20
--- NOTE | 2016-12-12 15:20 | RAD ---
PROCEDURE: Fluoroscopy 12/11/2016 HISTORY: OR PACE MAKER COMPARISON: Comparison made with prior chest radiograph dated 12/05/2016 TECHNIQUE: 3 fluoroscopic views of the mediastinum and left shoulder region performed. FINDINGS: Fluoroscopic guided placement bipolar pacemaker. IMPRESSION: Fluoroscopic guided placement of bipolar pacemaker. Please refer to operative report for additional details.
[2016-12-12 15:57] VITALS: BP 130/71; TEMP 98.4; O2SAT 96
== END 2016-12-12 17:10 | disposition home or self-care (01) | DRG 244 ==
LOC: H.ER 13:27 → H.ERHOLD 16:25 → H.TEL 20:37
PROC: 4A023N7 Measurement of Cardiac Sampling and Pressure, Left Heart, Percutaneous Approach (ICD-10-PCS; 2016-12-09)
PROC: B201YZZ Plain Radiography of Multiple Coronary Arteries using Other Contrast (ICD-10-PCS; 2016-12-09)
PROC: 02H63JZ Insertion of Pacemaker Lead into Right Atrium, Percutaneous Approach (ICD-10-PCS; 2016-12-11)
PROC: 02HK3JZ Insertion of Pacemaker Lead into Right Ventricle, Percutaneous Approach (ICD-10-PCS; 2016-12-11)
PROC: 0JH606Z Insertion of Pacemaker, Dual Chamber into Chest Subcutaneous Tissue and Fascia, Open Approach (ICD-10-PCS; principal; 2016-12-11 18:00)
DX: I49.5 Sick sinus syndrome (principal); I44.1 Atrioventricular block, second degree; E86.0 Dehydration; I48.91 Unspecified atrial fibrillation; E11.9 Type 2 diabetes mellitus without complications; E07.81 Sick-euthyroid syndrome; I10 Essential (primary) hypertension; E78.5 Hyperlipidemia, unspecified; E78.00 Pure hypercholesterolemia, unspecified